=== PATIENT | female | born 1950 | race Caucasian/White ===

== ENCOUNTER 2022-10-08 16:48 | Emergency (ER) | payer MEDICARE ==
[~2022-10-08] VITALS: Ht 157.5 cm; Wt 59.0 kg
[2022-10-08 17:10] VITALS: BP 155/106
[2022-10-08 17:31] VITALS: BP 177/94
[2022-10-08 18:00] VITALS: BP 165/79
[2022-10-08] MEDS ORDERED: TRAMADOL HYDROC50 M1 PO (19:22)
[2022-10-08] MEDS ORDERED: NAPROXEN SODIU220 M2 PO (19:22)
[2022-10-08 19:38] VITALS: BP 165/79
== END 2022-10-08 19:41 | disposition home or self-care (01) ==
LOC: ED 16:48
DX: S50.01XA Contusion of right elbow, initial encounter (principal); S20.211A Contusion of right front wall of thorax, initial encounter; M25.511 Pain in right shoulder; I10 Essential (primary) hypertension; V58.4XXA Person boarding or alighting a pick-up truck or van injured in noncollision transport accident, initial encounter